=== PATIENT | female | born 2005 | race Caucasian/White ===

== ENCOUNTER 2023-05-08 20:04 | Emergency (ER) | payer BC ==
[2023-05-08] MEDS ORDERED: Ketorolac Tromethamine 30 MG/ML VIAL ONE (20:32)
[2023-05-08 20:44] LABS: #Eosinphils 0.1 10x3/uL (0.0-0.5); #Monocytes 0.7 10x3/uL (0.0-1.1); #Neutrophils 2.3 10x3/uL (1.5-8.4); %Basophils 0.5 % (0.0-2.0); %Eosinophils 1.6 % (0.0-6.0); %Lymphocytes 27.5 % (18.0-47.0); %Monocytes 16.9 % (0.0-10.0); %Neutrophils 53.3 % (40.0-75.0); Hematocrit 37.5 % (34.9-44.5); Mean Corpuscular HGB CONC 34.7 g/dL (32.0-36.0); Mean Corpuscular Hemoglobin 31.6 pg (27.0-33.0); Mean Corpuscular Volume 91.2 fl (81.6-98.3); Mean Platelet Volume 10.7 fl (7.4-10.4); Platelet Count 215 10x3/uL (150-450); RBC Distribution Width 11.9 % (11.5-14.5); Red Blood Cell (RBC) Count 4.11 10x6/uL (3.90-5.03); White Blood Cell (WBC) Count 4.3 10x3/uL (3.5-10.5)
[2023-05-08 20:57] LABS: ALT (SGPT) 16 U/L (8-55); AST (SGOT) 19 U/L (5-34); Albumin 4.2 g/dL (3.5-5.0); Alkaline Phosphatase 37 U/L (40-100); Anion Gap 11 mmol/L (10-20); BUN (Urea Nitrogen) 9 mg/dL (7.0-18.7); Bilirubin, Total 0.8 mg/dL (0.2-1.2); Calc. Creatinine Clearance 0 mL/min (70-130); Calcium 8.9 mg/dL (7.8-10.44); Carbon Dioxide 24 mmol/L (22-29); Chloride 105 mmol/L (98-107); Estimated GFR 99; Globulin 2.7 g/dL (2.4-3.5); Glucose 97 mg/dL (70-105); Magnesium 1.8 mg/dL (1.7-2.2); Potassium 3.3 mmol/L (3.5-5.1); Protein, Total 6.9 g/dL (6.0-8.3); Sodium 137 mmol/L (136-145)
[2023-05-08 21:41] LABS: Bilirubin Neg (Negative); Blood, Urine 10 (Negative); Clarity Slightly Cloudy (Clear); Glucose, Urine (Dipstick) Normal (Negative); Ketone, Urine 5 mg/dL (Negative); Leukocyte 25 (Negative); Nitrite Negative (Negative); Protein, Urine (Dipstick) 15 mg/dl (Neg-Trace)
[2023-05-08 21:43] LABS: Pregnancy Test - Urine (BHCG) Negative (Negative); Pregu Control Background? CLEAR/WHITE (CLR/WHITE); Pregu Control Bar Appear? YES (CONTROL BAR)
[2023-05-08 21:53] LABS: Bacteria/HPF 2+ HPF (None Seen); CAUTI Indications for Culture Pelvic or flank pain; Mucous/LPF 4+ LPF (<2+); RBC/HPF 0-3 HPF (0-3)
[2023-05-08 21:56] LABS: Urine Culture Reflex No No
== END 2023-05-08 22:40 | disposition home or self-care (01) ==
LOC: CSHERS 20:04
DX: R19.7 Diarrhea, unspecified (principal)
CPT/HCPCS: 80053; 81001; 81025; 83735; 85025; 96361; 96374; J1885